=== PATIENT | male | born 1975 | race Caucasian/White ===

== ENCOUNTER 2023-12-19 23:06 | Emergency (ER) | payer OTHER ==
[2023-12-19 23:32] VITALS: BP 132/80; TEMP 97.6; BMI 28.3
[2023-12-20 00:38] LABS: BASO % 0.8 % (0-2.0); EOS % 0.8 % (0-4.5); HEMATOCRIT 37.9 % (35.4-49); LYMPH % 23.6 % (8-40); MCH 32.5 pg (25.7-33.7); MCHC 34.2 g/dl (32.0-35.9); MEAN PLT VOLUME 7.7 fl (7.5-11.1); MONO % 7.3 % (3.8-10.2); NEUT % 67.5 % (42.8-82.8); PLATELET COUNT 410 10^3/uL (134-434); RBC 3.98 M/mm3 (4.00-5.60); RDW 13.5 % (11.9-15.9); WHITE BLOOD COUNT 8.8 K/mm3 (4.0-10.0)
[2023-12-20 00:46] LABS: INR 1.01 (0.83-1.09); PROTHROMBIN TIME (PATIENT) 11.7 SEC (9.7-13.0)
[2023-12-20 00:49] LABS: ACTIVATED PTT 27.7 SECONDS (25.2-36.5)
[2023-12-20 00:55] LABS: POTASSIUM 4.9 mmol/L (3.5-5.1)
[2023-12-20 00:58] LABS: ALBUMIN 3.8 g/dl (3.4-5.0); BLOOD UREA NITROGEN 6.1 mg/dL (7-18); CALCIUM 8.3 mg/dL (8.5-10.1)
[2023-12-20 01:01] LABS: CREATININE 0.7 mg/dL (0.55-1.3)
[2023-12-20 01:03] LABS: BILIRUBIN,TOTAL 0.4 mg/dL (0.2-1); TOT PROT 7.5 g/dl (6.4-8.2)
[2023-12-20] MEDS ORDERED: ACETAMINOPHEN INJECTION 100 ML IVPB ONE (01:05)
[2023-12-20] MEDS ORDERED: FAMOTIDINE 20 MG/50 ML IVPB 20 MG/50 ML MG IVPB ONE (01:06)
[2023-12-20] MEDS ORDERED: MAG HYDROX/AL HYDROX/SIMETH 30 ML UNIT-DOSE CUP ONE (01:06)
[2023-12-20 01:10] LABS: PH,URINE 5.5 (5.0-8.0); URINE APPEARANCE CLEAR; URINE BILIRUBIN NEGATIVE (NEGATIVE); URINE COLOR YELLOW; URINE GLUCOSE (UA) NEGATIVE (NEGATIVE); URINE KETONE NEGATIVE (NEGATIVE); URINE LEUK ESTERASE NEGATIVE (NEGATIVE); URINE NITRITE NEGATIVE (NEGATIVE); URINE PROTEIN NEGATIVE (NEGATIVE); URINE UROBILINOGEN 0.2 mg/dL (0.2-1.0)
[2023-12-20 01:16] LABS: COCAINE, UR NEGATIVE (NEGATIVE); OPIATES, URI NEGATIVE (NEGATIVE); URINE BARBITURATES NEGATIVE (NEGATIVE)
[2023-12-20 01:17] LABS: METHADONE, UR NEGATIVE (NEGATIVE); PHENCYCLIDINE,URINE NEGATIVE (NEGATIVE); URINE BENZODIAZEPINES NEGATIVE (NEGATIVE)
[2023-12-20] MEDS: SODIUM CHLORIDE 0.9% 500 ML INFUS.BAG IV ONE (01:17)
[2023-12-20] MEDS: MAG HYDROX/AL HYDROX/SIMETH 30 ML UNIT-DOSE CUP PO ONE (01:17)
[2023-12-20 01:18] LABS: URINE AMPHETAMINES NEGATIVE (NEGATIVE)
[2023-12-20] MEDS: ACETAMINOPHEN 1000 MG/100 ML BAG IVPB ONE (01:18)
[2023-12-20] MEDS: FAMOTIDINE 20 MG/50 ML IVPB 20 MG/50 ML MG IVPB ONE (01:18)
[2023-12-20] MEDS ORDERED: chlordiazePOXIDE HCL 10 MG CAPSULE ONE (01:54)
[2023-12-20] MEDS: chlordiazePOXIDE HCL 10 MG CAPSULE PO ONE (01:56)
[2023-12-20 02:32] VITALS: PULSE 72; RESP 18
== END 2023-12-20 02:20 | disposition home or self-care (01) ==
LOC: JER 23:06
PROC: 3E033GC Introduction of Other Therapeutic Substance into Peripheral Vein, Percutaneous Approach (ICD-10-PCS; principal; 2023-12-20)
PROC: 3E033NZ Introduction of Analgesics, Hypnotics, Sedatives into Peripheral Vein, Percutaneous Approach (ICD-10-PCS; 2023-12-20)
DX: F10.129 Alcohol abuse with intoxication, unspecified (principal); M54.50 Low back pain, unspecified; R10.32 Left lower quadrant pain; Z20.822 Contact with and (suspected) exposure to COVID-19
CPT/HCPCS: 0241U-QW; 36415; 80053; 80307; 81003; 85025; 85610; 85730; 87086; 99284-25; J0131